=== PATIENT | female | born 1995 ===

== ENCOUNTER 2021-09-05 12:38 | Inpatient (IN) | payer OTHER ==
[2021-09-05] MEDS ORDERED: Sodium Chloride 0.9% 10 ML Syringe FLUSH PRN (13:10)
[2021-09-05] MEDS ORDERED: Tranexamic Acid 1,000 MG in Sodium Chloride 0.9% 100 ML IV PRN (13:10)
[2021-09-05] MEDS ORDERED: Sodium Chloride 0.9% 20 ML SDV IV PRN (13:10)
[2021-09-05] MEDS ORDERED: Terbutaline 1 MG/ML SDV SUBCUT PRN (13:10)
[2021-09-05] MEDS ORDERED: Misoprostol 200 MCG Tab PO PRN (13:10)
[2021-09-05] MEDS ORDERED: Methylergonovine 0.2 MG/1 ML Amp IM PRN (13:10)
[2021-09-05] MEDS ORDERED: Water For Irrigation,Sterile 1,000 ML Container IRR PRN (13:10)
[2021-09-05] MEDS ORDERED: Ondansetron 4 MG/2 ML SDV IVPUSH PRN (13:10)
[2021-09-05] MEDS ORDERED: Butorphanol 1 MG/ML SDV IVPUSH PRN (13:10)
[2021-09-05] MEDS ORDERED: Carboprost Tromethamine 250 MCG/1 ML Amp IM PRN (13:10)
[2021-09-05] MEDS ORDERED: Lidocaine 1% 50 ML MDV INJECT PRN (13:10)
[2021-09-05] MEDS ORDERED: Sodium Chloride 0.9% 2.5 ML Syringe FLUSH PRN (13:10)
[2021-09-05] MEDS ORDERED: Oxytocin/0.9 % Sodium Chloride 30 UNIT/500 ML BAG IV SCH ×2 (13:15)
[2021-09-05] MEDS ORDERED: ePHEDrine 50 MG/ML SDV IVPUSH PRN ×2 (13:55)
[2021-09-05] MEDS ORDERED: Misoprostol 25 MCG (1/4 of 100 MCG) Tab VAG PRN (14:00)
[2021-09-05 14:42] LABS: BLOOD UREA NITROGEN,BUN 10 mg/dL (7.0-18.0); CARBON DIOXIDE,CO2 22.6 mmol/L (21.0-32.0); CHLORIDE,CL 103 mmol/L (98-107); GLUCOSE RANDOM 75 mg/dL (74-106); POTASSIUM,K 4.2 mmol/L (3.5-5.1); SODIUM,NA 137 mmol/L (136-145)
[2021-09-05] MEDS: Misoprostol 25 MCG (1/4 of 100 MCG) Tab VAG PRN (18:38)
[2021-09-05] MEDS: Lactated Ringers 1,000 ML IV SCH (22:16)
[2021-09-06] MEDS: Misoprostol 25 MCG (1/4 of 100 MCG) Tab VAG PRN (00:52)
[2021-09-06] MEDS: Lactated Ringers 1,000 ML IV SCH ×4 (05:00→17:34)
[2021-09-06] MEDS: Ropivacaine HCl/PF 200 MG in Premix Bag 1 BAG EPIDUR SCH ×2 (15:09→20:45)
[2021-09-06] MEDS ORDERED: Acetaminophen 500 MG Tab PO ONE (16:49)
[2021-09-06] MEDS ORDERED: Measles, Mumps & Rubella Vaccine 0.5 ML SDV SUBCUT ONE (23:27)
[2021-09-06] MEDS ORDERED: oxyCODONE 5 MG Tab PO PRN (23:27)
[2021-09-06] MEDS ORDERED: Lanolin 100% Cream 7 GM Tube TOP PRN (23:27)
[2021-09-06] MEDS ORDERED: Benzocaine/Menthol 20%-0.5% Spray 78 GM Cannister TOP PRN (23:27)
[2021-09-06] MEDS ORDERED: Bisacodyl 10 MG Supp RECTAL PRN (23:27)
[2021-09-06] MEDS ORDERED: Witch Hazel Medicated Pads 40/Jar TOP PRN (23:27)
[2021-09-07] MEDS: Ibuprofen 800 MG Tab PO PRN ×3 (01:46→21:30)
[2021-09-07] MEDS: Acetaminophen 500 MG Tab PO PRN ×3 (01:47→21:31)
[2021-09-07] MEDS: Docusate Sodium 100 MG Cap PO PRN (10:21)
[2021-09-07] MEDS ORDERED: Oxytocin 10 Units/1 ML SDV ONE (14:54)
[2021-09-08] MEDS: Acetaminophen 500 MG Tab PO PRN (08:08)
[2021-09-08] MEDS: Ibuprofen 800 MG Tab PO PRN (08:09)
[2021-09-08] MEDS: Docusate Sodium 100 MG Cap PO PRN (08:17)
== END 2021-09-08 10:35 | disposition home or self-care (01) | DRG 806 ==
LOC: MW.OBCHECK 12:38 → MW.OB 12:40 → MW.OBCHECK 13:10 → MW.OB 13:10 → OBSVTOIN 09-06 23:02 → MW.OB 09-07 02:43
PROVIDERS: ADMIT Obstetrics & Gynecology; ATTEND Obstetrics & Gynecology
PROC: 3E033VJ Introduction of Other Hormone into Peripheral Vein, Percutaneous Approach (ICD-10-PCS; principal; 2021-09-06)
PROC: 10E0XZZ Delivery of Products of Conception, External Approach (ICD-10-PCS; 2021-09-06)
PROC: 3E0R3BZ Introduction of Anesthetic Agent into Spinal Canal, Percutaneous Approach (ICD-10-PCS; 2021-09-06)
PROC: 3E0P7VZ Introduction of Hormone into Female Reproductive, Via Natural or Artificial Opening (ICD-10-PCS; 2021-09-06)
PROC: 00HU33Z Insertion of Infusion Device into Spinal Canal, Percutaneous Approach (ICD-10-PCS; 2021-09-06)
PROC: 10H07YZ Insertion of Other Device into Products of Conception, Via Natural or Artificial Opening (ICD-10-PCS; 2021-09-06)
PROC: 3E0234Z Introduction of Serum, Toxoid and Vaccine into Muscle, Percutaneous Approach (ICD-10-PCS; 2021-09-06)
DX: O14.04 Mild to moderate pre-eclampsia, complicating childbirth (principal); O99.354 Diseases of the nervous system complicating childbirth; Z37.0 Single live birth; G80.9 Cerebral palsy, unspecified; O76 Abnormality in fetal heart rate and rhythm complicating labor and delivery; Z20.822 Contact with and (suspected) exposure to COVID-19; Z23 Encounter for immunization; Z3A.40 40 weeks gestation of pregnancy
CPT/HCPCS: 01967; 36415; 51702; 59025; 59409; 80053; 82570; 82803; 84156; 84550; 85014; 85018; 85027; 86592; 86850; 86900; 86901; 90707; A9270-GY; J0595; J2405; J2590; J2795; J7120; U0002